=== PATIENT | female | born 1965 | race Caucasian/White ===

== ENCOUNTER 2024-10-11 22:06 | Emergency (ER) | payer BC, SELFPAY ==
[2024-10-11 22:24] VITALS: BP 160/77; PULSE 78; TEMP 36.7; O2SAT 99; BMI 44.2
--- NOTE | 2024-10-11 22:36 | ED.GENADUL1 ---
HPI HPI - General Adult General Chief complaint: Extremity Injury, Lower Stated complaint: CALF ON LOWER LEFT LEG INFECTED Time Seen by Provider: 10/11/24 22:16 Source: patient Mode of arrival: walk-in Limitations: no limitations History of Present Illness HPI narrative: This 58-year-old female presents for evaluation and concern for infection in her left lower leg adjacent to a tattoo that she had placed several months ago. The patient has multiple bug bites on her lower extremities. She states that she went to work today and was wearing jeans that were rubbing on it. She then went grocery shopping and when getting home and taking off her pants she realized that she had a red inflamed area just medial to a new tattoo. She has not had any fever. There is no lymphangitic streaking. She is not diabetic. There is no history of tick bites. Related Data Home Medications ?Medication ?Instructions ?Recorded ?Confirmed No Known Home Medications 10/11/24 10/11/24 Allergies Allergy/AdvReac Type Severity Reaction Status Date / Time codeine Allergy Severe Unknown Verified 10/11/24 22:33 cephalexin (From Keflex) Allergy Mild Rash Verified 10/11/24 22:33 clarithromycin (From Biaxin) Allergy Rash Verified 10/11/24 22:33 Penicillins Allergy Unknown Verified 10/11/24 22:33 Review of Systems ROS Status of ROS 10 or more systems reviewed and unremarkable except as noted in history and below PFSH PFSH Social History Little interest or pleasure in doing things: not at all Feeling down, depressed, or hopeless: not at all Exam Narrative Exam Narrative: Vital signs and Nursing Notes reviewed: Is afebrile with a normal pulse, blood pressure is mildly elevated at 160/77, she is not hypoxic with pulse ox of 99% on room air General: Awake, alert, oriented, no acute distress, sitting in a chair HEENT: Normocephalic atraumatic, mucous membranes are moist and pink, eyes are clear, normal conjunctiva, vision is grossly intact Chest: Lungs are clear to auscultation with good air entry, there is no wheezing rhonchi or rales appreciated no accessory muscle use, patient is speaking in complete sentences-no chest wall tenderness to palpation CVS: Regular rate and rhythm S1-S2, no murmurs rubs or gallops, pulses are brisk and equal bilaterally Extremities: Moving all extremities, no lower extremity tenderness or swelling noted, there is approximately 1.5 cm erythematous flat macule with irregular borders just medial to a large tattoo. There are no pustules involved with the tattoo. Tattoo edges appear normal with no sign of infection. There is no lymphangitic streaking or drainage from this macule. Patient has multiple additional mosquito bites on her lower legs. There is no sign of cellulitis or other wound infection. Skin: Normal in appearance without rash with small area of erythema involving a macule adjacent to a tattoo on the left lower extremity Neuro: No focal deficits Constitutional Vital Signs, click to edit/add: Last Vital Signs Temp 98.1 F 10/11/24 22:24 Pulse 78 10/11/24 22:24 Resp 20 10/11/24 22:24 BP 160/77 H 10/11/24 22:24 Pulse Ox 99 10/11/24 22:24 O2 Del Method Room Air 10/11/24 22:24 Course Vital Signs Vital signs: Vital Signs Temperature 98.1 F 10/11/24 22:24 Pulse Rate 78 10/11/24 22:24 Respiratory Rate 20 10/11/24 22:24 Blood Pressure 160/77 H 10/11/24 22:24 Pulse Oximetry 99 10/11/24 22:24 Oxygen Delivery Method Room Air 10/11/24 22:24 Temperature 98.1 F 10/11/24 22:24 Pulse Rate 78 10/11/24 22:24 Respiratory Rate 20 10/11/24 22:24 Blood Pressure 160/77 H 10/11/24 22:24 Pulse Oximetry 99 10/11/24 22:24 Oxygen Delivery Method Room Air 10/11/24 22:24 Medical Decision Making [facility] Narrative Medical decision making narrative: This 58-year-old female, nondiabetic presents for evaluation and concerned that she has an infected mosquito bite on her left leg. She noticed the symptoms earlier today after being outside last weekend and getting bit by multiple mosquitoes. She states she does use bug spray but was outside for several hours and was unaware that the bug spray had likely worn off. She does have a small approximately 1.5 cm macule with irregular borders that she states is bothering her with itching and burning. There is no drainage from this area. There is no appreciable cellulitis or lymphangitic streaking. She is allergic to Keflex. She was given a dose of doxycycline in the emergency department will be discharged home with a prescription for doxycycline. I encouraged her to continue using bug spray and keep this area clean, dry and covered. She is in agreement with this plan. Discharge Plan Discharge Chief Complaint: Extremity Injury, Lower Clinical Impression: Skin infection Patient Disposition: Home, Self-Care Time of Disposition Decision: 22:33 Condition: Good Prescriptions / Home Meds: No Action No Known Home Medications Print Language: German Instructions: Cellulitis (ED) Additional Instructions: Use warm compresses on this area, use antibiotics as directed until gone. Keep the area covered with a loose dressing to prevent additional irritation to your skin. Referrals: DAVIS ARGUELLO [Primary Care Provider, Family Practice] - 1 week
--- NOTE | 2024-10-11 22:39 | PC.NURSE ---
small red area to the left lower leg by tattoo.
[2024-10-11] MEDS: DOXYCYCLINE MONOHYDRATE 100 MG CAPSULE PO (22:43)
== END 2024-10-11 22:54 | disposition home or self-care (01) ==
PROVIDERS: Emergency Provider Emergency Medicine; PCP Internal Medicine
DX: L08.9 Local infection of the skin and subcutaneous tissue, unspecified (principal)
CPT/HCPCS: 99283